=== PATIENT | female | born 1985 | race Caucasian/White ===

== ENCOUNTER 2023-05-21 13:27 | Inpatient (IN) | payer SELFPAY ==
[2023-05-21] MEDS ORDERED: SODIUM CHLORIDE 0.9% 1,000 ML IV ONE ×2 (13:42)
--- NOTE | 2023-05-21 14:14 | ED ---
General Adult HPI - General Source: patient, EMS, RN notes reviewed, old records reviewed Mode of arrival: EMS <Sterling Merino - Last Filed: 05/21/23 15:05> <Brennen Lopez - Last Filed: 05/21/23 20:06> - General Chief complaint: Alcohol Stated complaint: ETOH Time Seen by Provider: 05/21/23 13:40 - History of Present Illness Initial comments: This is a 38-year-old female who was sent into the emergency department because she was altered mentally. It is assumed that the patient is intoxicated and the patient does admit to drinking over a fifth of liquor today. Patient however is significantly confused and can't give any more specific history than that she is not accurately answering questions. Patient denies any seizure history. Patient denies any recent fever chills or cough per patient chest pain difficulty breathing shortest breath per patient denies any abdominal pain. (Sterling Merino) - Related Data Home Medications Medication Instructions Recorded Confirmed No Known Home Medications 05/21/23 05/21/23 Allergies Allergy/AdvReac Type Severity Reaction Status Date / Time No Known Allergies Allergy Verified 05/21/23 14:24 Review of Systems ROS Other: All systems not noted in ROS Statement are negative. <Sterling Merino - Last Filed: 05/21/23 15:05> ROS Other: All systems not noted in ROS Statement are negative. <Brennen Lopez - Last Filed: 05/21/23 20:06> ROS Statement: Those systems with pertinent positive or pertinent negative responses have been documented in the HPI. General Exam <Sterling Merino - Last Filed: 05/21/23 15:05> - General Exam Comments Initial Comments: GENERAL: Patient is well-developed and well-nourished. Patient is nontoxic and well- hydrated and is in no acute distress. Patient does appear intoxicated ENT: Neck is soft and supple. No significant lymphadenopathy is noted. Oropharynx is clear. Moist mucous membranes. Neck has full range of motion without eliciting any pain. EYES: The sclera were anicteric and conjunctiva were pink and moist. Extraocular movements were intact and pupils were equal round and reactive to light. Eyelids were unremarkable. PULMONARY: Unlabored respirations. Good breath sounds bilaterally. No audible rales rhonchi or wheezing was noted. CARDIOVASCULAR: There is a regular rate and rhythm without any murmurs gallops or rubs. ABDOMEN: Soft and nontender with normal bowel sounds. SKIN: Skin is clear with no lesions or rashes and otherwise unremarkable. NEUROLOGIC: Patient is alert and oriented 1. Cranial nerves II through XII are grossly intact. Motor and sensory are also intact. Normal speech, volume and content. Symmetrical smile. MUSCULOSKELETAL: Normal extremities with adequate strength and full range of motion. LYMPHATICS: No significant lymphadenopathy is noted PSYCHIATRIC: Unable to assess at this time (Sterling Merino) Course Vital Signs 05/21/23 13:38 Temperature 98.4 F Pulse Rate 98 Respiratory 18 Rate Blood Pressure 115/86 O2 Sat by Pulse 92 L Oximetry Medical Decision Making <Sterling Merino - Last Filed: 05/21/23 15:05> - Lab Data Result diagrams: 05/21/23 13:42 05/21/23 13:42 <Brennen Lopez - Last Filed: 05/21/23 20:06> - Medical Decision Making EKG was interpreted by myself shows sinus rhythm at 87 bpm TX interval 150 QRS is 86 QT interval 344 QTC is 389. Patient's EKG shows no ST segment elevation or depression. Was pt. sent in by a medical professional or institution ([facility], [employer], urgent care, hospital, or halfway...) When possible be specific @ -[No] Did you speak to anyone other than the patient for history (EMS, parent, family, police, friend...)? What history was obtained from this source @ -EMS gave all the history Did you review nursing and triage notes (agree or disagree)? Why? @ -[I reviewed and agree with nursing and triage notes] Were old charts reviewed (outside hosp., previous admission, EMS record, old EKG, old radiological studies, urgent care reports/EKG's, halfway records)? Report findings @ -[No old charts were reviewed] Differential Diagnosis (chest pain, altered mental status, abdominal pain women, abdominal pain men, vaginal bleeding, weakness, fever, dyspnea, syncope, headache, dizziness, GI bleed, back pain, seizure, CVA, palpatations, mental health, musculoskeletal)? @ -Differential Altered Mental Status: Hypoglycemia, DKA, hypercapnia, ETOH, overdose, CO poisoning, trauma, myxedema coma, HTN encephalopathy, infection, encephalitis, psychosis, intercranial hemorrhage, hepatic encephalopathy, meningitis, CVA, this is not meant to be an all-inclusive list EKG interpreted by me (3pts min.). @ -[As above] X-rays interpreted by me (1pt min.). @ -[None done] CT interpreted by me (1pt min.). @ -[None done] U/S interpreted by me (1pt. min.). @ -[None done] What testing was considered but not performed or refused? (CT, X-rays, U/S, labs)? Why? @ -[None] What meds were considered but not given or refused? Why? @ -[None] Did you discuss the management of the patient with other professionals (professionals i.e. , PA, [employer], lab, RT, psych nurse, social media community manager, reclamation kettle tender, teacher, parking officer, complex case manager)? Give summary @ -[No] Was smoking cessation discussed for >3mins.? @ -[No] Was critical care preformed (if so, how long)? @ -[No] Were there social determinants of health that impacted care today? How? (Homelessness, low income, unemployed, alcoholism, drug addiction, transportation, low edu. Level, literacy, decrease access to med. care, fdc, rehab)? @ -[No] Was there de-escalation of care discussed even if they declined (Discuss DNR or withdrawal of care, Hospice)? DNR status @ -[No] What co-morbidities impacted this encounter? (DM, HTN, Smoking, COPD, CAD, Cancer, CVA, ARF, Chemo, Hep., AIDS, mental health diagnosis, sleep apnea, morbid obesity)? @ -[None] Was patient admitted / discharged? Hospital course, mention meds given and route, prescriptions, significant lab abnormalities, going to OR and other pertinent info. @ -Patient appear intoxicated however she was significantly altered so I felt obligated to order a CAT scan of the head. Patient awaits lab work and CT. Patient care taken over by Dr. Emmanuel for at 3 PM (Sterling Merino) The patient was signed out to me from Dr. Merino. The patient was signed out pending complete evaluation as the patient was refusing IV at that time. The patient was clearly intoxicated on my evaluation and refused medical care at this time however the patient was intoxicated and needed further evaluation. The patient needed to have medications including Haldol, Ativan and Benadryl and was able to rest comfortable B. An IV was obtained. The patient and was also present and did place a petition with the patient for continued hallucinations and psychosis that the patient has been x-rays over last several months associated with her significant drinking and alcoholism. [facility] however was a poor historian and cannot provide further details at this time. Undiagnosed new problem with uncertain prognosis? @ -No Drug Therapy requiring intensive monitoring for toxicity (Heparin, Nitro, Insulin, Cardizem)? @ -No Were any procedures done? @ -No Diagnosis/symptom? @ -Acute alcohol intoxication, psychosis Acute, or Chronic, or Acute on Chronic? @ -Acute on chronic Uncomplicated (without systemic symptoms) or Complicated (systemic symptoms)? @ -Complicated Side effects of treatment? @ -No Exacerbation, Progression, or Severe Exacerbation? @ -No Poses a threat to life or bodily function? How? (Chest pain, USA, SC, pneumonia, PE, COPD, DKA, ARF, appy, cholecystitis, CVA, Diverticulitis, Homicidal, Suicidal, threat to staff... and all critical care pts) @ -Yes, continued alcoholism can lead to permanent damage and possible . (Brennen Lopez) - Lab Data Lab Results 05/21/23 05/21/23 05/21/23 Range/Units 13:42 13:42 13:42 WBC 7.5 (3.8-10.6) k/uL RBC 3.87 (3.80-5.40) m/uL Hgb 13.1 (11.4-16.0) gm/dL Hct 38.6 (34.0-46.0) % MCV 99.7 (80.0-100.0) fL MCH 33.9 (25.0-35.0) pg MCHC 34.0 (31.0-37.0) g/dL RDW 13.1 (11.5-15.5) % Plt Count 267 (150-450) k/uL MPV 7.1 Neutrophils % 50 % Lymphocytes % 41 % Monocytes % 3 % Eosinophils % 2 % Basophils % 2 % Neutrophils # 3.8 (1.3-7.7) k/uL Lymphocytes # 3.0 (1.0-4.8) k/uL Monocytes # 0.2 (0-1.0) k/uL Eosinophils # 0.2 (0-0.7) k/uL Basophils # 0.1 (0-0.2) k/uL PT 9.7 (9.0-12.0) sec INR 0.9 (<1.2) APTT 22.8 (22.0-30.0) sec Sodium 143 (137-145) mmol/L Potassium 4.0 (3.5-5.1) mmol/L Chloride 108 H (98-107) mmol/L Carbon Dioxide 23 (22-30) mmol/L Anion Gap 12 mmol/L BUN 18 H (7-17) mg/dL Creatinine 0.82 (0.52-1.04) mg/dL Est GFR (CKD-EPI)AfAm >90 (>60 ml/min/1.73 sqM) Est GFR (CKD-EPI)NonAf >90 (>60 ml/min/1.73 sqM) Glucose 77 (74-99) mg/dL Calcium 8.2 L (8.4-10.2) mg/dL Magnesium 2.3 (1.6-2.3) mg/dL Total Bilirubin 0.3 (0.2-1.3) mg/dL AST 26 (14-36) U/L ALT 21 (4-34) U/L Alkaline Phosphatase 59 (38-126) U/L Ammonia (<30) umol/L Total Protein 7.0 (6.3-8.2) g/dL Albumin 4.0 (3.5-5.0) g/dL Serum Alcohol 315 H* mg/dL 05/21/23 Range/Units 13:42 WBC (3.8-10.6) k/uL RBC (3.80-5.40) m/uL Hgb (11.4-16.0) gm/dL Hct (34.0-46.0) % MCV (80.0-100.0) fL MCH (25.0-35.0) pg MCHC (31.0-37.0) g/dL RDW (11.5-15.5) % Plt Count (150-450) k/uL MPV Neutrophils % % Lymphocytes % % Monocytes % % Eosinophils % % Basophils % % Neutrophils # (1.3-7.7) k/uL Lymphocytes # (1.0-4.8) k/uL Monocytes # (0-1.0) k/uL Eosinophils # (0-0.7) k/uL Basophils # (0-0.2) k/uL PT (9.0-12.0) sec INR (<1.2) APTT (22.0-30.0) sec Sodium (137-145) mmol/L Potassium (3.5-5.1) mmol/L Chloride (98-107) mmol/L Carbon Dioxide (22-30) mmol/L Anion Gap mmol/L BUN (7-17) mg/dL Creatinine (0.52-1.04) mg/dL Est GFR (CKD-EPI)AfAm (>60 ml/min/1.73 sqM) Est GFR (CKD-EPI)NonAf (>60 ml/min/1.73 sqM) Glucose (74-99) mg/dL Calcium (8.4-10.2) mg/dL Magnesium (1.6-2.3) mg/dL Total Bilirubin (0.2-1.3) mg/dL AST (14-36) U/L ALT (4-34) U/L Alkaline Phosphatase (38-126) U/L Ammonia <9 (<30) umol/L Total Protein (6.3-8.2) g/dL Albumin (3.5-5.0) g/dL Serum Alcohol mg/dL Disposition <Sterling Merino - Last Filed: 05/21/23 15:05> Is patient prescribed a controlled substance at d/c from ED?: No Time of Disposition: 18:00 Decision to Admit Reason: Admit from EC Decision Date: 05/21/23 Decision Time: 18:00 <Brennen Lopez - Last Filed: 05/21/23 20:06> Clinical Impression: Alcoholic intoxication, Evaluation by psychiatric service required Disposition: ADMITTED IP TO THIS [facility] Condition: Stable Referrals: None,Stated [Primary Care Provider] - 1-2 days
[2023-05-21] MEDS ORDERED: LORazepam 2 MG/ML INJ IM STA (15:37)
[2023-05-21] MEDS ORDERED: diphenhydrAMINE 50 MG/ML 1 ML VIAL IM STA (15:37)
[2023-05-21] MEDS ORDERED: HALOPERIDOL LACTATE 5 MG/ML 1 ML VIAL IM STA (15:37)
--- NOTE | 2023-05-21 17:11 | XR ---
EXAMINATION TYPE: XR chest 2V DATE OF EXAM: 05/21/2023 5:06 PM COMPARISON: None TECHNIQUE: XR chest 2V Frontal and lateral views of the chest. CLINICAL INDICATION:Female, 38 years old with history of altered mental status; FINDINGS: Lungs/Pleura: There is no evidence of pleural effusion, focal consolidation, or pneumothorax. Pulmonary vascularity: Unremarkable. Heart/mediastinum: Cardiomediastinal silhouette is unremarkable. Musculoskeletal: No acute osseous pathology. IMPRESSION: No acute cardiopulmonary disease/process.
[2023-05-21 17:26] LABS: Basophils # (A) 0.1 k/uL (0-0.2); Basophils % (A) 2 %; Eosinophils # (A) 0.2 k/uL (0-0.7); Eosinophils % (A) 2 %; HCT 38.6 % (34.0-46.0); HGB 13.1 gm/dL (11.4-16.0); Lymphocytes % (A) 41 %; MCH 33.9 pg (25.0-35.0); MCV 99.7 fL (80.0-100.0); Mean Platelet Volume 7.1; Monocytes # (A) 0.2 k/uL (0-1.0); Monocytes % (A) 3 %; Neutrophils # (A) 3.8 k/uL (1.3-7.7); Neutrophils % (A) 50 %; Platelet Count 267 k/uL (150-450); RBC 3.87 m/uL (3.80-5.40); RDW 13.1 % (11.5-15.5); WBC 7.5 k/uL (3.8-10.6)
[2023-05-21 17:39] LABS: INR 0.9 (<1.2); Partial Thromboplastin Time 22.8 sec (22.0-30.0); Prothrombin Time 9.7 sec (9.0-12.0)
[2023-05-21 17:41] LABS: ALT 21 U/L (4-34); AST 26 U/L (14-36); African American GFR (CKD) >90 (>60 ml/min/1.73 sqM); Alkaline Phosphatase 59 U/L (38-126); Anion Gap 12 mmol/L; Blood Urea Nitrogen 18 mg/dL (7-17); Calcium 8.2 mg/dL (8.4-10.2); Carbon Dioxide 23 mmol/L (22-30); Chloride 108 mmol/L (98-107); Glucose 77 mg/dL (74-99); Magnesium 2.3 mg/dL (1.6-2.3); Non-African American GFR(CKD) >90 (>60 ml/min/1.73 sqM); Sodium 143 mmol/L (137-145); Total Bilirubin 0.3 mg/dL (0.2-1.3)
[2023-05-21 17:50] LABS: Alcohol 315 mg/dL
--- NOTE | 2023-05-21 19:52 | CT ---
EXAMINATION TYPE: CT brain wo con CT DLP: 1161.4 mGycm, Automated exposure control for dose reduction was used. DATE OF EXAM: 05/21/2023 7:30 PM COMPARISON: None. CLINICAL INDICATION:Female, 38 years old with history of Altered mental status, ams, etoh TECHNIQUE: Brain: Axial CT images of the brain were obtained with coronal and sagittal reformats created and rev iewed. Contrast used: None. Oral contrast used: None. FINDINGS: Brain: Extra-axial spaces: No abnormal extra-axial fluid collections. Ventricular system: Within normal limits Cerebral parenchyma: No acute intraparenchymal hemorrhage or mass effect. The arias-white junction is well differentiated. Cerebellum: Unremarkable. Mass effect: No evidence of midline shift. Intracranial vasculature: unremarkable Soft tissues: Normal. Calvarium/osseous structures: No depressed skull fracture. Paranasal sinuses and mastoid air cells: Mild scattered paranasal sinus disease. Visualized orbits: Orbital contents are intact. IMPRESSION: No acute intracranial process.
[2023-05-21] MEDS ORDERED: NALOXONE 0.4 MG/ML 1 ML VIAL IV PRN (20:07)
[2023-05-21 22:20] LABS: Glucose,Whole Blood 85 mg/dL (70-110)
[2023-05-22] MEDS ORDERED: LORazepam 2 MG/ML INJ IV PRN ×4 (00:33)
[2023-05-22] MEDS ORDERED: LORazepam 0.5 MG TAB PO PRN (00:33)
[2023-05-22] MEDS ORDERED: LORazepam 1 MG TAB PO PRN (00:33)
--- NOTE | 2023-05-22 01:21 | P.HPIM ---
History of Present Illness H&P Date: 05/21/23 Chief Complaint: alcohol withdrawal 38year old female with history of alcohol withdrawal seizures and DTs patient denies any medical concerns , when asked, she says that she was at a hotel, her card did not run, and they called the police on her. she denies any medical concerns , and admits to heavy drinking for the past couple days. while ED documentation reported that she was found unresponsive, EMS brought her in for evaluation, and workup in the ED revealed acute alcohol intoxication. she was violent in the ED, so she was petitioned for evaluation. 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 All other systems were reviewed and are negative on exam Constitutional: No acute distress, conversant, pleasant Eyes: Anicteric sclerae, moist conjunctiva, Pupils equal round reactive to light ENMT: NC/AT Oropharynx clear, no erythema, or exudates Neck: Supple, no masses, or JVD No carotid bruits No thyromegaly Lungs: Clear to auscultation Clear to percussion Normal respiratory effort, no accessory muscle use Cardiovascular: Heart regular in rate and rhythm, No murmurs, gallops, or rubs No peripheral edema Abdominal: Soft Nontender, no guarding, rebound or rigidity Abdomen moving with respiration Normoactive bowel sounds No hepatomegaly, No splenomegaly No palpable mass No abdominal wall hernia noted Skin: Normal temperature, tone, texture, turgor No induration No subcutaneous nodules No rash, lesions No ulcers Extremities: No digital cyanosis No clubbing Pedal pulses intact and symmetrical Radial pulses intact and symmetrical No calf tenderness Psychiatric: Alert and oriented to person, place and time Appropriate affect fair judgement Neuro Muscles Strength 5/5 in all 4 extremities Sensation to light touch grossly present throughout Cranial nerves II-XII grossly intact Lymphatics: no palpable cervical or supraclavicular lymph nodes Past Medical History Additional Past Medical History / Comment(s): patient reports only drinking normally 1-2 drinks a week. Aunt reports patient has been heavy drinking for last 2 years and reports having a couple seizures after quitting drinking in the last month but did not go to hospital. History of Any Multi-Drug Resistant Organisms: None Reported Past Surgical History: No Surgical Hx Reported Past Anesthesia/Blood Transfusion Reactions: No Reported Reaction Past Psychological History: No Psychological Hx Reported Additional Psychological History / Comment(s): Patient denies any psych history, Patients Aunt Scarlet reported that she was told she had a history but does not know what. Also reported heavy drinking for last 2 years per Aunt although patient denies. Aunt reports "2 years ago patient was successfully running [id number] in [place] but went down hill with drinking and lost her job/in care home x 2 in [place] and now homeless." Per Scarlet "Candy will lie and manipulate to get out of the hospital and avoid getting help." Smoking Status: Current every day smoker Past Alcohol Use History: Heavy Additional Past Alcohol Use History / Comment(s): 1-2 drinks a week or even a month per patient. Reports today isolated incident. Per Scarlet (aunt) patient drinks heavy for last 2 years. Past Drug Use History: None Reported - Past Family History Father History Unknown: Yes Medications and Allergies Home Medications Medication Instructions Recorded Confirmed Type No Known Home Medications 05/21/23 05/21/23 History Allergies Allergy/AdvReac Type Severity Reaction Status Date / Time No Known Allergies Allergy Verified 05/21/23 14:24 Physical Exam Vitals: Vital Signs Temp Pulse Pulse Resp BP BP Pulse Ox 05/21/23 21:50 98.4 F 108 H 17 103/67 98 05/21/23 21:47 77 16 106/73 98 05/21/23 20:00 94 16 92/61 97 05/21/23 13:38 98.4 F 98 18 115/86 92 L Intake and Output 05/21/23 05/21/23 05/22/23 14:59 22:59 06:59 Other: Weight 49.895 kg 49.895 kg Results CBC & Chem 7: 05/21/23 13:42 05/21/23 13:42 Labs: Abnormal Lab Results - Last 24 Hours (Table) 05/21/23 Range/Units 13:42 Chloride 108 H (98-107) mmol/L BUN 18 H (7-17) mg/dL Calcium 8.2 L (8.4-10.2) mg/dL Serum Alcohol 315 H* mg/dL Thrombosis Risk Factor Assmnt - Choose All That Apply Any of the Below Risk Factors Present?: No Other Risk Factors: No Other congenital or acquired thrombophilia - If yes, enter type in comment: No Thrombosis Risk Factor Assessment Level: Very Low Risk Assessment and Plan Assessment: 38 year old female with history of withdrawal seizures, coming in due to being found unresponsive (or due to violent behavior in the hotel) I discussed the case with ED doc , and I accepted the admission for alcohol withdrawal and psych evaluation acute alcohol intoxication , with potential alcohol withdrawal monitor vital signs IVF hydration with D5% 0.45 at 75 cc per hour thiamine daily benzo per [facility] bedside sitter for safety psych evaluation patient petitioned in the ED brain CT negative for any acute pathology patient denies any suicidal ideation blood work showed elevated blood alcohol level blood work otherwise unremarkable Hgb 13.1 , WBC 7.5 unremarkable BUN 18 Cr 0.82 unremarkable full code DVT PPX heparin sc tid
[2023-05-22] MEDS: DEXTROSE 5%-0.45% NACL 1,000 ML IV SCH ×2 (02:08→15:31)
[2023-05-22 05:44] LABS: Amphetamine Screen,Urine Not Detected (NotDetected); Barbiturate Screen,Urine Not Detected (NotDetected); Benzodiazepines Screen,Urine Detected (NotDetected); Cocaine Screen,Urine Not Detected (NotDetected); Methadone Screen, Urine Not Detected (NotDetected); Opiate Screen,Urine Not Detected (NotDetected); Oxycodone Screen, Urine Not Detected (NotDetected); Phencyclidine Screen,Urine Not Detected (NotDetected); Tricyclic Antidepressant,Urine Not Detected (NotDetected); Urn Cannabinoid Scrn Not Detected (NotDetected)
[2023-05-22] MEDS: HEPARIN SODIUM,PORCINE 5,000 UNIT/ML 1 ML VIAL SQ SCH ×2 (08:34→15:31)
[2023-05-22 13:18] VITALS: BMI 18.8
--- NOTE | 2023-05-22 13:30 | P.PN ---
Subjective Progress Note Date: 05/22/23 Hospital Course: 38-year-old female with history of alcohol dependence, and history of alcohol withdrawal seizures and DTs presented with alcohol intoxication. Patient was petitioned by her aunt. Psychiatry consulted. Subjective: Patient seen and examined at bedside. No acute events overnight. Denies any complaints. Pertinent positives and negatives as discussed above, a complete review of systems was performed and all other systems are negative. Vitals Signs Reviewed. General: nontoxic, no distress, appears at stated age Derm: warm, dry Head: atraumatic, normocephalic, symmetric Eyes: EOMI, no lid lag, anicteric sclera Mouth: no lip lesion, mucus membranes moist Cardiovascular: S1S2 reg, no murmur Lungs: CTA bilateral, no rhonchi, no rales , no accessory muscle use Abdominal: soft, nontender to palpation, no guarding, no appreciable organomegaly Ext: no gross muscle atrophy, no edema, no contractures Neuro: CN II-XI grossly intact, no focal neuro deficits Psych: Alert, oriented, appropriate affect Data Reviewed Today: Pertinent Labs: Most recent glucose was 85 Imaging: No new imaging Assessment and Plan: Acute Alcohol intoxication History of alcohol dependence with withdrawals and DTs Anxiety Homelessness -Continue IV fluids, oral thiamine -Monitor for withdrawal -Patient was petitioned, podiatry evaluation pending -general scrap worker following -Patient is alert and oriented, bedside sitter discontinued, no suicidal ideations DVT ppx: Subcu heparin Code status: Full code Anticipated discharge place: Pending clinical course Anticipated discharge time: Pending clinical course Objective - Vital Signs Vital signs: Vital Signs Temp 99.0 F 05/22/23 07:07 Pulse 95 05/22/23 07:07 Resp 15 05/22/23 07:07 BP 119/79 05/22/23 07:07 Pulse Ox 99 05/22/23 08:47 FiO2 Intake & Output 05/21/23 05/22/23 05/22/23 18:59 06:59 18:59 Intake Total 375 Output Total 200 Balance 175 Weight 49.895 kg 49.895 kg 49.895 kg Intake: Intake, IV Titration 375 Amount Dextrose 5%-0.45% NaCl 1, 375 000 ml @ 75 mls/hr IV . [id number] Rx#:[id number] Output: Urine 200 Other: # Voids 3 - Labs CBC & Chem 7: 05/21/23 13:42 05/21/23 13:42 Labs: Abnormal Lab Results - Last 24 Hours (Table) 05/21/23 05/21/23 Range/Units 04:46 13:42 Chloride 108 H (98-107) mmol/L BUN 18 H (7-17) mg/dL Calcium 8.2 L (8.4-10.2) mg/dL U Benzodiazepines Scrn Detected H (NotDetected) Serum Alcohol 315 H* mg/dL
[2023-05-22 14:06] VITALS: BP 126/76; PULSE 83; RESP 14; TEMP 98.7
--- NOTE | 2023-05-22 14:45 | P.CN ---
Psychiatric Consult - . Consult date: 05/22/23 Consult:: 05/22/23 14:44 IDENTIFYING DATA: This patient is a single, unemployed, 38-year-old female with significant history of alcohol abuse who presents to our hospital on 05/21/2023, for acute alcohol intoxication. HISTORY OF PRESENT ILLNESS: The patient presented to the hospital on 05/21/2023, brought to the emergency department by EMS for acute alcohol intoxication. The patient was noted to be very agitated in the emergency department. She was grossly altered and acutely intoxicated. Serum alcohol was 315. The patient was petitioned by her aunt for mental health treatment at the patient has had a history of auditory and visual hallucinations. The patient did have a CT of her head performed which revealed no acute processes. EKG revealed sinus rhythm with short WI interval with a QTC of 389 ms. The patient was subsequently admitted to the medical floor for evaluation and management of acute alcohol withdrawal and concerns for delirium tremens. Present in the room with the patient has her on Scarlet Pichardo. Patient is agreeable to having her present in the room and to provide supplemental history. The patient recently relocated to [place] after being picked up by her aunt. The patient has been drinking excessively over the past few weeks, approximating at least a fifth of liquor per day. The patient has been unemployed and has been struggling with maintaining employment. 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 She has been struggling with her employment, her relationship with her ex-fianc she has been with for the past 10 years and recently broke up over the past year, and with her addiction. Furthermore, the patient has a history of abusing her Vyvanse. As per family members, she has been using 120 or more Vyvanse in a day. Of concern for the patient and her family, is her history of psychotic symptoms. The patient reports that she first had a psychotic episode 6 months ago. She reports hearing and seeing people that were not present. She was also opening the doors for people who were not there. Her roommate at the time express concern for this. However, when police came to evaluate her, the patient stated "I was just joking." More recently, she contacted her and expressed the same concerns that she has been followed and that there are shadow people. This episode occurred a few days prior to this admission. The patient reports that this occurred even when she was sober and outside the window of acute alcohol withdrawal. In regards to her mood, the patient does report elevated anxiety and depression. She does report difficulty with sleep. The patient's family reports that she has not been sleeping most nights. She would even use up to 7 Tylenol PMs at one time in order to address this problem. She does report low energy, low mood, elevated anxiety, however is denying any suicidal or homicidal ideation, intention, and/or plan. The patient and her family agreed that rehab would likely be the best option for her substance abuse. However they do express concern for her underlying mental illness, in particular the depression, anxiety, and psychosis. She is agreeable for inpatient psychiatric admission. PAST PSYCHIATRIC HISTORY: Patient has a history of depression, anxiety, alcohol use disorder, and ADHD. The patient has been previously prescribed gabapentin a nd Vyvanse. Patient denies any previous psychiatric hospitalizations. Patient denies any current psychiatric outpatient follow-up. Patient denies any history of suicide attempts in the past. PAST MEDICAL HISTORY: Additional Past Medical History / Comment(s): patient reports only drinking normally 1-2 drinks a week. Aunt reports patient has been heavy drinking for last 2 years and reports having a couple seizures after quitting drinking in the last month but did not go to hospital. History of Any Multi-Drug Resistant Organisms: None Reported Past Surgical History: No Surgical Hx Reported Past Anesthesia/Blood Transfusion Reactions: No Reported Reaction Past Psychological History: No Psychological Hx Reported Additional Psychological History / Comment(s): Patient denies any psych history, Patients Aunt Scarlet reported that she was told she had a history but does not know what. Also reported heavy drinking for last 2 years per Aunt although patient denies. 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 Reports today isolated incident. Per Scarlet (aunt) patient drinks heavy for last 2 years. Past Drug Use History: None Reported ALLERGIES: NO KNOWN DRUG ALLERGIES CHEMICAL DEPENDENCY HISTORY: The patient has been drinking at least 1-2 fifths of liquor per week. Apparently, the patient has been drinking heavily for the past 2 years. No reported illicit drug use however the patient is noted to abuse her Vyvanse. She also smokes tobacco daily. FAMILY PSYCHIATRIC/SUBSTANCE USE HISTORY: The patient's parents were noted to be bipolar. SOCIAL HISTORY: Patient was born and raised in [place], [place]. She has been living in [place] for approximately 10 years. 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 Currently, the patient is homeless. She has a history of incarceration. MENTAL STATUS EXAM: General Appearance: Patient appears to be stated age is alert, pleasant, and cooperative. Patient appears to have disheveled hygiene and grooming wearing hospital gown with fair eye contact. Behavior: Patient is calmly lying in bed without any agitated behavior. Speech: Patient's speech is fluent and nonpressured. Mood/Affect: Patient reports their mood is "not good lately", affect is constricted Suicidality/Homicidality: Patient reports no suicidal or homicidal ideation. Perceptions: Patient does report recent visual and auditory hallucinations however is denying any currently. She describes these as ego dystonic. Though content/process: There is no evidence of any delusional thought content and thought process is linear and goal-directed. Memory and concentration: AOX3, grossly intact for the purposes of this session. Can spell "WORLD" backwards Judgment and insight: Fair Vital Signs Temp 98.7 F 05/22/23 13:23 Pulse 83 05/22/23 13:23 Resp 14 05/22/23 13:23 BP 126/76 05/22/23 13:23 Pulse Ox 96 05/22/23 13:23 FiO2 Intake & Output 05/21/23 05/22/23 05/22/23 18:59 06:59 18:59 Intake Total 375 Output Total 200 Balance 175 Weight 49.895 kg 49.895 kg 49.895 kg Intake: Intake, IV Titration 375 Amount Dextrose 5%-0.45% NaCl 1, 375 000 ml @ 75 mls/hr IV . [id number] Rx#:[id number] Output: Urine 200 Other: # Voids 3 Laboratory Results WBC 7.5 k/uL (3.8-10.6) 05/21/23 13:42 RBC 3.87 m/uL (3.80-5.40) 05/21/23 13:42 Hgb 13.1 gm/dL (11.4-16.0) 05/21/23 13:42 Hct 38.6 % (34.0-46.0) 05/21/23 13:42 MCV 99.7 fL (80.0-100.0) 05/21/23 13:42 MCH 33.9 pg (25.0-35.0) 05/21/23 13:42 MCHC 34.0 g/dL (31.0-37.0) 05/21/23 13:42 RDW 13.1 % (11.5-15.5) 05/21/23 13:42 Plt Count 267 k/uL (150-450) 05/21/23 13:42 MPV 7.1 05/21/23 13:42 Neutrophils % 50 % 05/21/23 13:42 Lymphocytes % 41 % 05/21/23 13:42 Monocytes % 3 % 05/21/23 13:42 Eosinophils % 2 % 05/21/23 13:42 Basophils % 2 % 05/21/23 13:42 Neutrophils # 3.8 k/uL (1.3-7.7) 05/21/23 13:42 Lymphocytes # 3.0 k/uL (1.0-4.8) 05/21/23 13:42 Monocytes # 0.2 k/uL (0-1.0) 05/21/23 13:42 Eosinophils # 0.2 k/uL (0-0.7) 05/21/23 13:42 Basophils # 0.1 k/uL (0-0.2) 05/21/23 13:42 PT 9.7 sec (9.0-12.0) 05/21/23 13:42 INR 0.9 (<1.2) 05/21/23 13:42 APTT 22.8 sec (22.0-30.0) 05/21/23 13:42 Sodium 143 mmol/L (137-145) 05/21/23 13:42 Potassium 4.0 mmol/L (3.5-5.1) 05/21/23 13:42 Chloride 108 mmol/L (98-107) H 05/21/23 13:42 Carbon Dioxide 23 mmol/L (22-30) 05/21/23 13:42 Anion Gap 12 mmol/L 05/21/23 13:42 BUN 18 mg/dL (7-17) H 05/21/23 13:42 Creatinine 0.82 mg/dL (0.52-1.04) 05/21/23 13:42 Est GFR (CKD-EPI)AfAm >90 (>60 ml/min/1.73 sqM) 05/21/23 13:42 Est GFR (CKD-EPI)NonAf >90 (>60 ml/min/1.73 sqM) 05/21/23 13:42 Glucose 77 mg/dL (74-99) 05/21/23 13:42 POC Glucose (mg/dL) 85 mg/dL (70-110) 05/21/23 22:18 POC Glu [employer] HUY Tisha Butterfield 05/21/23 22:18 Calcium 8.2 mg/dL (8.4-10.2) L 05/21/23 13:42 Magnesium 2.3 mg/dL (1.6-2.3) 05/21/23 13:42 Total Bilirubin 0.3 mg/dL (0.2-1.3) 05/21/23 13:42 AST 26 U/L (14-36) 05/21/23 13:42 ALT 21 U/L (4-34) 05/21/23 13:42 Alkaline Phosphatase 59 U/L (38-126) 05/21/23 13:42 Ammonia <9 umol/L (<30) 05/21/23 13:42 Total Protein 7.0 g/dL (6.3-8.2) 05/21/23 13:42 Albumin 4.0 g/dL (3.5-5.0) 05/21/23 13:42 Urine Opiates Screen Not Detected (NotDetected) 05/21/23 04:46 Ur Oxycodone Screen Not Detected (NotDetected) 05/21/23 04:46 Urine Methadone Screen Not Detected (NotDetected) 05/21/23 04:46 Ur Propoxyphene Screen Not Detected (NotDetected) 05/21/23 04:46 Ur Barbiturates Screen Not Detected (NotDetected) 05/21/23 04:46 U Tricyclic Antidepress Not Detected (NotDetected) 05/21/23 04:46 Ur Phencyclidine Scrn Not Detected (NotDetected) 05/21/23 04:46 Ur Amphetamines Screen Not Detected (NotDetected) 05/21/23 04:46 U Methamphetamines Scrn Not Detected (NotDetected) 05/21/23 04:46 U Benzodiazepines Scrn Detected (NotDetected) H 05/21/23 04:46 Urine Cocaine Screen Not Detected (NotDetected) 05/21/23 04:46 U Marijuana (THC) Screen Not Detected (NotDetected) 05/21/23 04:46 Serum Alcohol 315 mg/dL H* 05/21/23 13:42 IMPRESSIONS: Alcohol use disorder Substance-induced psychosis - alcohol hallucinosis versus stimulant abuse Rule out bipolar disorder with psychotic features PLAN: -Continue her treatment for alcohol withdrawal -At this time patient DOES meet criteria for inpatient psychiatric admission. The patient is willing to sign herself voluntarily on the psychiatric unit in order to address acute psychotic symptoms, depressive symptoms, and decrease in functioning. -Delirium precautions recommended with patient including - avoiding use of narcotics and RUG CLIPPER sedatives, limit anticholinergic medications when possible, frequent re-orientation, minimize use of restraints, open window shades during the day and close them at night -Would recommend the following medication changes/additions: We will start Seroquel 100 mg by mouth at bedtime for insomnia, psychosis, and mood stabilization Start melatonin 5 mg by mouth daily at bedtime for insomnia Start naltrexone 50 mg by mouth daily for alcohol cessation -At this time, the patient does not require one-to-one sitter. -The patient has been petitioned by her aunt. Patient appears to be willing to sign herself voluntarily on to the psychiatric unit. -Will continue to follow along -When medically stable, patient is eligible for transfer to a psych bed when available. 05/22/23 14:45 05/22/23 14:45
--- NOTE | 2023-05-22 14:52 | P.DS ---
Providers Date of admission: 05/21/23 20:07 Expected date of discharge: 05/22/23 Attending physician: Shade Cowart MD Consults: 05/21/23 20:07 Consult Physician Routine Consulting Provider: Osito Frazier Consult Reason/Comments: Petitioned, hallucinations Do you want consulting provider notified?: Already Contacted Primary care physician: Stated None Hospital Course: Discharge Diagnosis: Acute Alcohol intoxication History of alcohol dependence with withdrawals and DTs Anxiety Homelessness Hospital Course: 38-year-old female with history of alcohol dependence, and history of alcohol withdrawal seizures and DTs presented with alcohol intoxication. Patient was petitioned by her aunt. Psychiatry consulted. Patient is now being discharged to Psych for substance-induced psychosis, rule out bipolar disorder. Patient seen and examined at bedside. Vital signs reviewed and stable. General: nontoxic, no distress, appears at stated age Derm: warm, dry Head: atraumatic, normocephalic, symmetric Eyes: EOMI, no lid lag, anicteric sclera Mouth: no lip lesion, mucus membranes moist Cardiovascular: S1S2 reg, no murmur Lungs: CTA bilateral, no rhonchi, no rales , no accessory muscle use Abdominal: soft, nontender to palpation, no guarding, no appreciable organomegaly Ext: no gross muscle atrophy, no edema, no contractures Neuro: CN II-XI grossly intact, no focal neuro deficits Psych: Alert, oriented, appropriate affect A total of 36 minutes of time were spent preparing this complex discharge summary. Patient was discharged on 05/22/23 at 1447. Patient Condition at Discharge: Stable Plan - Discharge Summary Discharge Rx Participant: No New Discharge Prescriptions: New Melatonin 5 mg PO HS tab QUEtiapine [SEROquel] 100 mg PO HS tab Thiamine [Vitamin B-1] 100 mg PO DAILY tab Discharge Medication List Melatonin 5 mg PO HS tab 05/22/23 [Rx] QUEtiapine [SEROquel] 100 mg PO HS tab 05/22/23 [Rx] Thiamine [Vitamin B-1] 100 mg PO DAILY tab 05/22/23 [Rx] Follow up Appointment(s)/Referral(s): None,Stated [Primary Care Provider] - 1-2 days Patient Instructions/Handouts: Alcohol Intoxication (DC) Discharge/Stand Alone Forms: [facility], [facility], Outpatient Counseling, Inp Substance Abuse Facilities Discharge Disposition: TRANSFER TO PSYCH HOSP/UNIT
[2023-05-22] MEDS ORDERED: MELATONIN 5 MG TABLET PO SCH (21:00)
[2023-05-22] MEDS ORDERED: QUEtiapine 100 MG TAB PO SCH (21:00)
[2023-05-23] MEDS ORDERED: THIAMINE 100 MG TAB PO SCH (09:00)
[2023-05-23] MEDS ORDERED: NALTREXONE HCL 50 MG TAB PO SCH (09:00)
== END 2023-05-22 18:04 | DRG 897 ==
LOC: EC 13:27 → 4SSUR 20:07
PROVIDERS: ADMIT Internal Medicine; ATTEND Internal Medicine
PROC: HZ2ZZZZ Detoxification Services for Substance Abuse Treatment (ICD-10-PCS; principal; 2023-05-21)
DX: F10.251 Alcohol dependence with alcohol-induced psychotic disorder with hallucinations (principal); F10.239 Alcohol dependence with withdrawal, unspecified; F17.210 Nicotine dependence, cigarettes, uncomplicated; Y90.8 Blood alcohol level of 240 mg/100 ml or more; Z59.00 Homelessness unspecified; Z56.0 Unemployment, unspecified
CPT/HCPCS: 36415; 70450; 71046; 80053; 80306; 80320; 82140; 83735; 85025; 85610; 85730; 93005; 94760; 96360; 96372; 99285

== ENCOUNTER 2023-05-22 16:34 | Inpatient (IN) | payer OTHER ==
[2023-05-22] MEDS ORDERED: OLANZapine 5 MG TAB PO PRN (16:52)
[2023-05-22] MEDS ORDERED: hydrOXYzine HCL 50 MG/ML 1 ML VIAL IM PRN (16:52)
[2023-05-22] MEDS ORDERED: OLANZapine 10 MG VIAL IM PRN (16:52)
[2023-05-22] MEDS ORDERED: ACETAMINOPHEN TAB 325 MG TAB PO PRN (16:52)
[2023-05-22] MEDS ORDERED: MAGNESIUM HYDROXIDE 2,400 MG/30 ML CUP PO PRN (16:52)
[2023-05-22] MEDS ORDERED: hydrOXYzine pamoate 25 MG CAP PO PRN (16:59)
[2023-05-22] MEDS ORDERED: QUEtiapine 100 MG TAB PO SCH (21:00)
[2023-05-22] MEDS: chlordiazePOXIDE 25 MG CAP PO SCH ×2 (21:46→22:13)
[2023-05-22] MEDS: MELATONIN 5 MG TABLET PO SCH (21:46)
[2023-05-23] MEDS: THIAMINE 100 MG TAB PO SCH (08:17)
[2023-05-23] MEDS: chlordiazePOXIDE 25 MG CAP PO SCH ×3 (08:17→21:22)
[2023-05-23] MEDS: NICOTINE 14MG/24HR PATCH TRANSDERM SCH (08:17)
[2023-05-23] MEDS: IBUPROFEN 600 MG TAB PO PRN ×2 (09:37→16:17)
--- NOTE | 2023-05-23 13:10 | P.HP ---
Psychiatric H&P - . H&P Date: 05/23/23 History & Physical: Allergies Allergy/AdvReac Type Severity Reaction Status Date / Time No Known Allergies Allergy Verified 05/21/23 14:24 Vital Signs Temp 98 F 05/23/23 06:40 Pulse 85 05/23/23 06:40 Resp 20 05/23/23 06:40 BP 119/79 05/23/23 06:40 Pulse Ox 98 05/23/23 06:40 FiO2 Intake & Output 05/22/23 05/23/23 05/23/23 18:59 06:59 18:59 Weight 54.885 kg 05/23/23 13:10 IDENTIFYING DATA: This patient is a single, unemployed, 38-year-old female with significant history of alcohol abuse who presents to our hospital on 05/21/2023, for acute alcohol intoxication. The patient was managed on the medical floor for acute withdrawal and was subsequently admitted onto our psychiatric unit for evaluation of psychosis and mood. HPI: Patient presented to the hospital on 05/21/2023, brought into the emergency department by EMS for acute alcohol intoxication. Furthermore, the patient was noted to be very agitated in the emergency department. She was petitioned by her aunt for mental health treatment. The patient has been struggling with mental health issues for the past year. She has been experiencing elevated anxiety and depression after the relationship with her fianc of 10 years ended. She reports that even during their relationship together, he suffered from a traumatic brain injury and that the relationship has not recovered. She reports that she has been coping with excessive alcohol use. She does endorse significant symptoms of depression and anxiety including difficulty with sleep, low energy, low mood, and would often self medicate with alcohol to cope. In order to address her insomnia, the patient would also ingest up to 7 Tylenol PMs at once. The patient however vehemently denies any past or present suicidal or homicidal ideation, intention, and/or plan. Aside from the patient's mood, there is concern for psychosis. The patient reports that she has had intermittent episodes of psychosis over the past year. She describes very vivid auditory hallucinations that started a year ago and very vivid visual hallucinations that has happened sporadically since then. The patient maintains that this would occur even when she is "not depressed and not drinking alcohol for weeks." She reports that she is often hearing the voice of her father telling her how much she is a failure. 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 She states that these hallucinations occur primarily when she is very stressed out. She reports that when she was staying with a friend in [place], she experienced torso hallucinations. She reported that she saw her grandmother and aunts present when they were not there. She reports that they were also present in the car when she was driving. She did text her and as this was happening. She was also evaluated in a hospital in [place] and the provided her with IM medication and after sleeping, she woke up without any hallucinations and was discharged her from the emergency department. Currently, the patient is facing homelessness. However, she states that she was able to speak with her parents and would like to return to their home prior to going to rehab. The patient expresses strong desire to go to [facility] for inpatient substance abuse rehabilitation. She was educated on how there will ne aurora be an ideal situation to quit alcohol. Patient acknowledges understanding. She is agreeable to psychiatric admission and to be initiated on these medications are to address her psychosis and alcohol use. PAST PSYCHIATRIC HISTORY: Patient states that she was previously diagnosed with ADHD, depression, anxiety. The patient has been previously prescribed gabapentin, Vyvanse, and Adderall. She does admit to abusing her Vyvanse on occasion. Patient denies any previous psychiatric hospitalizations. Patient denies any psychiatric outpatient follow-up. Patient denies any history of suicide attempts in the past. PMH: Additional Past Medical History / Comment(s): patient reports only drinking normally 1-2 drinks a week. Aunt reports patient has been heavy drinking for last 2 years and reports having a couple seizures after quitting drinking in the last month but did not go to hospital. History of Any Multi-Drug Resistant Organisms: None Reported Past Surgical History: No Surgical Hx Reported Past Anesthesia/Blood Transfusion Reactions: No Reported Reaction Past Psychological History: No Psychological Hx Reported Additional Psychological History / Comment(s): Patient denies any psych history, Patients Aunt Scarlet reported that she was told she had a history but does not know what. Also reported heavy drinking for last 2 years per Aunt although patient denies. 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 Reports today isolated incident. Per Scarlet (aunt) patient drinks heavy for last 2 years. Past Drug Use History: None Reported ALLERGIES: NO KNOWN DRUG ALLERGIES CHEMICAL DEPENDENCY HISTORY: The patient has been drinking at least 1-2 fifths of liquor per week. Apparently, the patient has been drinking heavily for the past 2 years. No reported illicit drug use however the patient is noted to abuse her Vyvanse. She also smokes tobacco daily. FAMILY PSYCHIATRIC/SUBSTANCE USE HISTORY: The patient's parents were noted to be bipolar. SOCIAL HISTORY: Patient was born and raised in [place], [place]. She has been living in [place] for approximately 10 years. 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 Currently, the patient is homeless. The patient apparently is welcome to return home to her parents who reside outside [place]. MENTAL STATUS EXAM: General Appearance: Patient appears to be stated age is alert, directable, and attempts to cooperate. Patient appears to have fair hygiene and grooming. Behavior: Patient is seated without any agitated behavior. Slightly elevated psychomotor activity. Speech: Patient's speech is fluent and nonpressured. Hyperverbal and slightly rapid but interruptible. Mood/Affect: Patient reports their mood is very nervous, affect is congruent and anxious Suicidality/Homicidality: Patient is vehemently denying any suicidal or homicidal ideation, intention, and/or plan. Perceptions: Patient denies any visual hallucinations and denies any auditory hallucinations Though content/process: There is no evidence of any delusional thought content and thought process is linear and goal-directed. Memory and concentration: AOX3, grossly intact for the purposes of this session. Can spell "WORLD" backwards Judgment and insight: Fair STRENGTHS/WEAKNESSES: Strength is that the patient is highly motivated and high functioning prior to the last year. She also appears to have good social support from her family although no permanent housing. Weaknesses the patient's substance abuse. INTELLECT: average IMPRESSIONS: Alcohol use disorder Substance-induced psychosis - alcohol hallucinosis versus stimulant abuse Rule out bipolar disorder with psychotic features PLAN: -Patient is admitted under voluntary status to MHU for stabilization of psychiatric symptoms and safety. Patient signed adult voluntary form and medication consent and is placed in patient's chart. -Medications : Increase Seroquel to 150 mg by mouth at bedtime for insomnia, psychosis, and mood stabilization Continue naltrexone 50 mg by mouth daily for alcohol cessation Continue melatonin 5 mg daily at bedtime for insomnia Librium 25 mg by mouth 3 times a day for alcohol withdrawal - will taper tomorrow -Zyprexa and Vistaril PRN for agitation/aggression -[facility] protocol -Thiamin and a multivitamin -Patient was counselled on substance abuse and desired to cut back on use. Patient is interested in going to inpatient substance abuse rehabilitation. -Patient was informed of the risks, benefits and side effects of the medication and patient verbally consented to taking the medications. Patient signed med consent form and was placed in chart. -Internal Medicine consult to perform medical evaluation and physical. -SW on board for discharge planning. Encourage patient to participate in groups to work on coping skills. 05/23/23 13:10
[2023-05-23] MEDS: QUEtiapine 100 MG TAB PO SCH (21:22)
[2023-05-23] MEDS: MELATONIN 5 MG TABLET PO SCH (21:22)
[2023-05-24] MEDS: THIAMINE 100 MG TAB PO SCH (08:36)
[2023-05-24] MEDS: NICOTINE 14MG/24HR PATCH TRANSDERM SCH (08:36)
[2023-05-24] MEDS: IBUPROFEN 600 MG TAB PO PRN ×2 (08:37→13:36)
[2023-05-24] MEDS: chlordiazePOXIDE 25 MG CAP PO SCH ×2 (08:38→20:46)
--- NOTE | 2023-05-24 11:38 | P.HPMEDMHU ---
History of Present Illness H&P Date: 05/24/23 Patient is a 38-year-old female with alcohol use disorder, substance abuse disorder, nicotine dependence, borderline personality disorder currently in behavioral health unit. [facility] has been consulted for medical management. Denies any chest pain, shortness of breath, abdominal pain, nausea, vomiting, diarrhea, constipation, or urinary complaints. Pertinent positives and negatives as discussed in HPI, a complete review of systems was performed and all other systems are negative. Patient seen and examined at bedside. Vital signs reviewed General: nontoxic, no distress, appears at stated age Derm: warm, dry Head: atraumatic, normocephalic, symmetric Eyes: EOMI, no lid lag, anicteric sclera, pupils equal round reactive to light ENT: Nose and ears atraumatic Neck: No thyromegaly, supple Mouth: no lip lesion, mucus membranes moist Cardiovascular: S1S2 reg, no murmur, no edema Lungs: clear to auscultation bilateral, no rhonchi, no rales, no wheeze, no accessory muscle use Abdominal: soft, nontender to palpation, no guarding, no appreciable organomegaly Ext: no gross muscle atrophy, muscle strength muscle strength 5 out of 5 in all 4 extremities, no contractures Neuro: CN II-XII grossly intact Psych: Alert, oriented, appropriate affect Assessment/Plan: Alcohol use disorder Substance use disorder Nicotine dependence -Counseled regarding cessation of alcohol, substance, and nicotine -Rest of the management per psychiatry -Labs reviewed from 05/21 Thank you for allowing us to participate in the care of this pleasant patient. Do not hesitate to contact us with questions. Someone can be reached from the [facility] hospitalist group all hours of the day at [phone] or via [employer]. Past Medical History Additional Past Medical History / Comment(s): patient reports only drinking normally 1-2 drinks a week. Aunt reports patient has been heavy drinking for last 2 years and reports having a couple seizures after quitting drinking in the last month but did not go to hospital. History of Any Multi-Drug Resistant Organisms: None Reported Past Surgical History: No Surgical Hx Reported Past Anesthesia/Blood Transfusion Reactions: No Reported Reaction Past Psychological History: No Psychological Hx Reported Additional Psychological History / Comment(s): Patient denies any psych history, Patients Aunt Scarlet reported that she was told she had a history but does not know what. Also reported heavy drinking for last 2 years per Aunt although patient denies. 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 Reports today isolated incident. Per Scarlet (aunt) patient drinks heavy for last 2 years. Past Drug Use History: None Reported - Past Family History Father History Unknown: Yes Medications and Allergies Home Medications Medication Instructions Recorded Confirmed Type Melatonin 5 mg PO HS tab 05/22/23 05/22/23 Rx QUEtiapine [SEROquel] 100 mg PO HS tab 05/22/23 05/22/23 Rx Thiamine [Vitamin B-1] 100 mg PO DAILY tab 05/22/23 05/22/23 Rx Allergies Allergy/AdvReac Type Severity Reaction Status Date / Time No Known Allergies Allergy Verified 05/21/23 14:24 Physical Exam Vitals: Vital Signs Temp Pulse Resp BP Pulse Ox 05/24/23 06:00 98.3 F 90 16 104/77 98 Cranial Nerve Examination - Cranial Nerves Cranial Nerve II- Optic: Intact Cranial Nerve III- Oculomotor: Intact Cranial Nerve IV- Trochlear: Intact Cranial Nerve V- Trigeminal: Intact Cranial Nerve - Abducens: Intact Cranial Nerve VII- Facial: Intact Cranial Nerve VIII- Auditory: Intact Cranial Nerve IX- Glossopharyngeal: Intact Cranial Nerve X- Vagus: Intact Cranial Nerve XI- Accessory: Intact Cranial Nerve XII- Hypoglossal: Intact Thrombosis Risk Factor Assmnt - Choose All That Apply Any of the Below Risk Factors Present?: No Other Risk Factors: No Other congenital or acquired thrombophilia - If yes, enter type in comment: No Thrombosis Risk Factor Assessment Level: Very Low Risk
--- NOTE | 2023-05-24 11:41 | P.PN ---
Progress Note - Text Progress Note Date: 05/24/23 attempted to see patient, but sleeping.
[2023-05-24] MEDS: MAG HYDROX/AL HYDROX/SIMETH 30 ML CUP PO PRN (13:36)
[2023-05-24] MEDS: QUEtiapine 100 MG TAB PO SCH (20:41)
[2023-05-24] MEDS: MELATONIN 5 MG TABLET PO SCH (20:45)
[2023-05-25] MEDS: THIAMINE 100 MG TAB PO SCH (08:04)
[2023-05-25] MEDS: NICOTINE 14MG/24HR PATCH TRANSDERM SCH (08:04)
[2023-05-25] MEDS: IBUPROFEN 600 MG TAB PO PRN ×2 (08:06→15:57)
[2023-05-25] MEDS: chlordiazePOXIDE 25 MG CAP PO SCH ×2 (08:06→20:25)
--- NOTE | 2023-05-25 18:45 | P.PN ---
Progress Note - Text Progress Note Date: 05/25/23 Interval history: Patient was seen talking to a peer in the hallway and was directable and agreeable to speak with typewriter assembler. Her speech is rapid, but non-pressured. She appears anxious and focused on discharge on Saturday. She claims good mood, sleep and appetite. Vitals reviewed and HR is 106, will continue her on Librium 25 mg bid for now. We discussed will be tapering the Librium as tolerated and she requested Benadryl for sleep. At this time patient denies any suicidal or homicidal ideations intent or plan. Denies any auditory or visual hallucinations. Patient denies any side effects from the medications and has been compliant with meds. Mental status exam: General Appearance: Patient appears to be stated age is alert, directable, and superficially cooperative. Behavior: No agitated behavior. Patient is fixated on discharge. Speech: Patient's speech is fluent and non-pressured. Mood/Affect: Mood is anxious, affect is congruent and constricted. Suicidality/Homicidality: Patient denies having any suicidal or homicidal ideation intent or plan. Perceptions: Patient denies any auditory or visual hallucinations. Though content/process: There is no evidence of any delusional thought content and thought process is linear and goal-directed. Memory and concentration: AOX3, grossly intact for the purposes of this session Judgment and insight: improving mildly Assessment/Plan: Continue with current diagnosis. Patient continues to meet criteria for in patient psychiatric admission for symptom stabilization and safety. Patient will be maintained on current psychotropic medication regimen. Plan to taper down Librium depending on response. Start Benadryl 50 mg QHS PRN for sleep. Monitor for medication compliance and for any psychotropic medication side effects. Will continue to monitor ongoing response to treatment. Encouraged participation in milieu.
[2023-05-25] MEDS: QUEtiapine 100 MG TAB PO SCH (20:24)
[2023-05-25] MEDS: MELATONIN 5 MG TABLET PO SCH (20:25)
[2023-05-25] MEDS: diphenhydrAMINE 50 MG CAP PO PRN (20:54)
[2023-05-26] MEDS: THIAMINE 100 MG TAB PO SCH (08:47)
[2023-05-26] MEDS: IBUPROFEN 600 MG TAB PO PRN ×2 (08:48→14:00)
[2023-05-26] MEDS: MAG HYDROX/AL HYDROX/SIMETH 30 ML CUP PO PRN (08:48)
[2023-05-26] MEDS: NICOTINE GUM (POLACRILEX) 2 MG GUM BUCCAL PRN ×2 (08:48→14:00)
[2023-05-26] MEDS: chlordiazePOXIDE 25 MG CAP PO SCH (08:48)
[2023-05-26] MEDS: NICOTINE 14MG/24HR PATCH TRANSDERM SCH (08:49)
--- NOTE | 2023-05-26 19:25 | P.PN ---
Progress Note - Text Progress Note Date: 05/26/23 Interval history: Patient was seen socializing with her roommate and was directable and agreeable to speak with junior copywriter. Her speech is rapid, but non-pressured. She appears anxious and focused on discharge on Saturday again today, can be somewhat demanding. She claims good mood, sleep and appetite. Vitals reviewed and stable. She completed the Librium taper with last dose this morning. No signs of alcohol withdrawal. At this time patient denies any suicidal or homicidal ideation, intent or plan. Denies any auditory or visual hallucinations. Patient denies any side effects from the medications and has been compliant with meds. Mental status exam: General Appearance: Patient appears to be stated age is alert, directable, and superficially cooperative. Behavior: No agitated behavior. Patient is fixated on discharge. Speech: Patient's speech is fluent and non-pressured. Mood/Affect: Mood is anxious about discharge but otherwise stable, affect is congruent and constricted. Suicidality/Homicidality: Patient denies having any suicidal or homicidal ideation intent or plan. Perceptions: Patient denies any auditory or visual hallucinations. Though content/process: There is no evidence of any delusional thought content and thought process is linear and goal-directed. Memory and concentration: AOX3, grossly intact for the purposes of this session Judgment and insight: improving mildly Assessment/Plan: Continue with current diagnosis. Patient continues to meet criteria for inpatient psychiatric admission for symptom stabilization and safety. Patient will be maintained on current psychotropic medication regimen. Librium taper completed this morning. Continue Benadryl 50 mg QHS PRN for sleep. Monitor for medication compliance and for any psychotropic medication side effects. Will continue to monitor ongoing response to treatment. Encouraged participation in milieu.
[2023-05-26] MEDS: QUEtiapine 100 MG TAB PO SCH (21:33)
[2023-05-26] MEDS: MELATONIN 5 MG TABLET PO SCH (21:34)
[2023-05-26] MEDS: diphenhydrAMINE 50 MG CAP PO PRN (21:39)
--- NOTE | 2023-05-27 05:55 | P.PN ---
Progress Note - Text Progress Note Date: 05/27/23 Attempted to see the patient in the MHU. The patient refused to be seen or be evaluated.
[2023-05-27] MEDS: IBUPROFEN 600 MG TAB PO PRN (06:15)
[2023-05-27] MEDS: NICOTINE GUM (POLACRILEX) 2 MG GUM BUCCAL PRN ×2 (06:17→15:19)
[2023-05-27] MEDS: NICOTINE 14MG/24HR PATCH TRANSDERM SCH (09:03)
[2023-05-27] MEDS: THIAMINE 100 MG TAB PO SCH (09:04)
--- NOTE | 2023-05-27 12:02 | P.PN ---
Progress Note - Text Progress Note Date: 05/27/23 Interval History: Patient was seen wandering the hallways and was directable and agreeable to speak with field underwriter in the office. The patient is currently fixated on discharge. She is vehemently denying any suicidal or homicidal ideation, intention, and/or plan. She is not reporting any auditory or visual hallucinations. She does however state to this provider that "I think I have been downplaying, how much I have been hallucinating. In having seizures." She continues to express a strong desire to go to particular rehabs the provider the opportunity for an EEG or MRI. The patient was educated that there will never be an ideal situation in order to address her ongoing substance abuse. She will feel at baseline and elevated sense of anxiety because she will be discontinuing alcohol and psychostimulants. The patient then inquires about this provider the importance of being on medication in order to address her focus. She was provided education how focuses more of a symptom rather than the diagnosis. She was informed that psychostimulants likely contributed to her overall psychotic symptoms. She expresses that she wishes to be discharged and would stay at a hotel before going to rehab. Mental Status Exam: General Appearance: Patient appears to be stated age is alert, directable, and cooperative. Behavior: Patient is calmly seated without any agitated behavior. Speech: Patient's speech is fluent and nonpressured. Hyperverbal but interruptible. Mood/Affect: Mood is "I want to be able to get a vape and be outside." Affect is anxious. Suicidality/Homicidality: Patient denies any suicidal or homicidal ideation, intention, and/or plan. Perceptions: Patient denies any visual hallucinations and denies any auditory hallucinations Though content/process: There is no evidence of any delusional thought content and thought process is linear and goal-directed. Memory and concentration: AOX3, grossly intact for the purposes of this session Judgment and insight: Improving mildly Vital Signs Temp 97.0 F L 05/27/23 06:19 Pulse 109 H 05/27/23 06:19 Resp 14 05/27/23 06:19 BP 119/69 05/27/23 06:19 Pulse Ox 98 05/25/23 17:07 FiO2 Assessment Alcohol use disorder Substance-induced psychosis - alcohol hallucinosis versus stimulant abuse Rule out bipolar disorder with psychotic features Seizure disorder Plan: -Patient continues to meet criteria for inpatient psychiatric admission for symptom stabilization and safety. Patient has signed adult voluntary form and medication consent and was placed in patient's chart. -Medications: Continue Seroquel 150 mg by mouth at bedtime for insomnia/psychosis Start Topamax 25 mg by mouth twice a day for seizure disorder and for off label anxiety Continue melatonin 5 mg by mouth at bedtime for insomnia Continue Benadryl 50 mg by mouth at bedtime when necessary for insomnia -When necessary Zyprexa and Vistaril for agitation/aggression. -NRT -Nicorette gum -SW on board for discharge planning. Encouraged the patient to participate in milieu.
[2023-05-27] MEDS: QUEtiapine 100 MG TAB PO SCH (20:54)
[2023-05-27] MEDS: TOPIRAMATE 25 MG TAB PO SCH (20:54)
[2023-05-27] MEDS: MELATONIN 5 MG TABLET PO SCH (20:54)
[2023-05-27] MEDS: diphenhydrAMINE 50 MG CAP PO PRN (20:55)
[2023-05-28 06:26] VITALS: BP 106/68; PULSE 70; RESP 19; TEMP 97.9
[2023-05-28] MEDS: IBUPROFEN 600 MG TAB PO PRN (09:34)
[2023-05-28] MEDS: TOPIRAMATE 25 MG TAB PO SCH (09:34)
[2023-05-28] MEDS: THIAMINE 100 MG TAB PO SCH (09:34)
[2023-05-28] MEDS: NICOTINE GUM (POLACRILEX) 2 MG GUM BUCCAL PRN (09:36)
[2023-05-28] MEDS: NICOTINE 14MG/24HR PATCH TRANSDERM SCH (11:06)
--- NOTE | 2023-05-28 11:43 | P.DS ---
Providers Date of admission: 05/22/23 18:11 Expected date of discharge: 05/28/23 Attending physician: Osito Frazier MD Consults: 05/22/23 16:52 Consult Physician Routine Consulting Provider: Colin Spears Consult Reason/Comments: H and P. Do you want consulting provider notified?: Yes Primary care physician: Stated None - Discharge Diagnosis(es) (1) Substance-induced psychotic disorder with hallucinations Current Visit: Yes Status: Acute Priority: High (2) Substance induced mood disorder Current Visit: Yes Status: Acute Priority: High (3) Alcohol use disorder Current Visit: Yes Status: Chronic Priority: High (4) Nondependent psychostimulant abuse Current Visit: Yes Status: Chronic Priority: High Hospital Course: Admission HPI: This patient is a single, unemployed, 38-year-old female with significant history of alcohol abuse who presents to our hospital on 05/21/2023, for acute alcohol intoxication. The patient was managed on the medical floor for acute withdrawal and was subsequently admitted onto our psychiatric unit for evaluation of psychosis and mood. Patient presented to the hospital on 05/21/2023, brought into the emergency d epartment by EMS for acute alcohol intoxication. Furthermore, the patient was noted to be very agitated in the emergency department. She was petitioned by her aunt for mental health treatment. The patient has been struggling with mental health issues for the past year. She has been experiencing elevated anxiety and depression after the relationship with her fianc of 10 years ended. She reports that even during their relationship together, he suffered from a traumatic brain injury and that the relationship has not recovered. She reports that she has been coping with excessive alcohol use. She does endorse significant symptoms of depression and anxiety including difficulty with sleep, low energy, low mood, and would often self medicate with alcohol to cope. In order to address her insomnia, the patient would also ingest up to 7 Tylenol PMs at once. The patient however vehemently denies any past or present suicidal or homicidal ideation, intention, and/or plan. Aside from the patient's mood, there is concern for psychosis. The patient reports that she has had intermittent episodes of psychosis over the past year. She describes very vivid auditory hallucinations that started a year ago and very vivid visual hallucinations that has happened sporadically since then. The patient maintains that this would occur even when she is "not depressed and not drinking alcohol for weeks." She reports that she is often hearing the voice of her father telling her how much she is a failure. 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 She states that these hallucinations occur primarily when she is very stressed out. She reports that when she was staying with a friend in [place], she experienced torso hallucinations. She reported that she saw her grandmother and aunts present when they were not there. She reports that they were also present in the car when she was driving. She did text her and as this was happening. She was also evaluated in a hospital in [place] and the provided her with IM medication and after sleeping, she woke up without any hallucinations and was discharged her from the emergency department. Currently, the patient is facing homelessness. However, she states that she was able to speak with her parents and would like to return to their home prior to g oing to rehab. The patient expresses strong desire to go to [facility] for inpatient substance abuse rehabilitation. She was educated on how there will never be an ideal situation to quit alcohol. Patient acknowledges understanding. She is agreeable to psychiatric admission and to be initiated on these medications are to address her psychosis and alcohol use. Patient states that she was previously diagnosed with ADHD, depression, anxiety. The patient has been previously prescribed gabapentin, Vyvanse, and Adderall. She does admit to abusing her Vyvanse on occasion. Patient denies any previous psychiatric hospitalizations. Patient denies any psychiatric outpatient follow- up. Patient denies any history of suicide attempts in the past. Hospital course: Upon admission to the unit patient was initially presenting as hyperverbal, anxious, and endorsing significant history of psychosis in the context of heavy substance abuse. Patient was however directable and agreeable to commence tr eatment. Patient got along well with other patients on the unit and followed unit protocol. Patient was compliant with the medications and denied any side effects throughout hospital course. Patient was started on regimen of Seroquel for psychosis, naltrexone for alcohol cessation, and Librium for alcohol withdrawal. The patient was tapered off Librium. Over the course of the hospitalization, the patient displayed significant improvement in regards to her target symptoms of psychosis and anxiety. Furthermore, her insomnia improved. She was started on Topamax in order to address a history of seizure disorder. Furthermore, the patient was provided with motivational interviewing regarding her alcohol abuse as well as her abuse of stimulants. She is provided psychoeducation on how these substances can precipitate psychotic and mood symptoms. Patient spoke of her stressors and engaged in therapy both group and individual. Patient was also seen by medical team for history and physical exam. Initially, the plan was for the patient to go directly to inpatient substance abuse rehabilitation however the patient preferred to do her own research as to which inpatient substance abuse rehabilitation would be "the right fit" for her. She was informed that there will never be an ideal situation in order to quit substances. The patient then decided that it was in her best interest to go to a hotel upon discharge accompanied by her aunt so that they may decide where to go for inpatient substance abuse rehabilitation then. On the day of discharge, the patient is not reporting any suicidal or homicidal ideation, intention, and/or plan. She is not reporting any auditory or visual hallucinations. She denies any paranoia or other delusions. She reports no access to firearms or other weapons. She has been injured with her medication is not reporting any significant side effects. She does report improved sleep. She expresses a strong desire to live for herself and for her family. The patient does have a significant history of substance abuse including alcohol and stimulants. She was counseled at great length on abstaining from all substances including tobacco, alcohol, marijuana, psychostimulants, and all other drugs of abuse. The patient plans to go to inpatient substance abuse rehabilitation in the near future. She was counseled at length on the reports of medication adherence and appropriate outpatient follow-up. As the patient no longer met criteria for acute inpatient psychiatric hospitalization, she was subsequently discharged. Mental status exam: General Appearance: Patient appears to be stated age is alert, pleasant, and cooperative. Patient is in no acute distress and has fair hygiene and grooming Behavior: Patient is calmly seated without any agitated behavior. Speech: Patient's speech is fluent and nonpressured. Slightly rapid and hyperverbal but interruptible. Mood/Affect: Patient reports their mood is "much better", affect is congruent and euthymic to bright. Suicidality/Homicidality: Patient denies any suicidal or homicidal ideation, intention, and/or plan. Perceptions: Patient denies any auditory or visual hallucinations. Though content/process: There is no evidence of any delusional thought content and thought process is linear and goal-directed. The patient is future oriented. Memory and concentration: AOX3, grossly intact for the purposes of this session. Can spell "WORLD" backwards correctly. Judgment and insight: Improved with guarded prognosis Impression: Substance-induced psychotic disorder with hallucinations Substance-induced mood disorder Alcohol use disorder Psychostimulant abuse Plan: -Continue with discharge today as patient has improved and stabilized psychiatrically and is not currently an imminent threat to herself and/or others. Patient will remain at chronically elevated risk for harm to self and/or others due to her substance abuse history. -Continue medications: Melatonin 5 mg daily at bedtime for insomnia Benadryl 50 mg by mouth at bedtime when necessary for insomnia Naltrexone 50 mg by mouth daily for alcohol cessation Seroquel 150 mg by mouth at bedtime for psychosis Topamax 25 mg by mouth twice a day for seizure disorder and off label anxiety Thiamine supplementation -Patient was counseled on the need for medication compliance and appropriate follow-up at mental health and also primary care for medical issues. Patient verbalized understanding and agreed. -Social work to arrange for and conduct family meeting to ensure safety upon discharge and answer any questions/concerns. Social work also to arrange for patients follow up appointments for psychiatric care along with follow up with primary care provider. -Patient counseled on abstaining from recreational drugs and marijuana and alcohol. Was informed/educated on the adverse effects on their physical and mental health. Patient verbally agreed and understood. Patient plans to go to inpatient substance rehabilitation within this week. She is still deciding to go. -Patient was instructed to return to the hospital or seek immediate medical care if their psychiatric or medical symptoms do worsen or reoccur. -Psychoeducation and supportive therapy provided to patient. Risks and benefits of pharmacological treatment versus the risks and benefits of nontreatment weighed and discussed. Informed consent discussion held. Common side effects of psychotropics discussed such as, but not limited to headache, GI disturbance, sexual dysfunction, movement disorders, sedation, and orthostatic hypotension. Life threatening and blackbox warnings of prescribed medications also discussed. Potential risks of operating a vehicle or heavy machinery discussed with patient at length. Advised on importance of compliance and a reliable and responsible manner. Patient advised to review FDA consumer labeling of all medications prior to taking. Patient verbalized understanding of potential risks, and agrees with current treatment plan. Patient advised to medically contact physician/emergency personnel if any acute changes in condition occur. Vital Signs Temp 97.9 F 05/28/23 06:00 Pulse 70 05/28/23 06:00 Resp 19 05/28/23 06:00 BP 106/68 05/28/23 06:00 Pulse Ox 98 05/28/23 06:00 FiO2 Allergies Allergy/AdvReac Type Severity Reaction Status Date / Time No Known Allergies Allergy Verified 05/21/23 14:24 Patient Condition at Discharge: Stable Plan - Discharge Summary Discharge Rx Participant: Yes New Discharge Prescriptions: New Melatonin 5 mg PO HS 30 Days #30 tab Thiamine [Vitamin B-1] 100 mg PO DAILY 30 Days #30 tab Naltrexone HCl 50 mg PO DAILY 30 Days #30 tab diphenhydrAMINE [Benadryl] 50 mg PO HS PRN 30 Days #30 cap PRN Reason: Insomnia QUEtiapine [SEROquel] 150 mg PO HS 30 Days #45 tab Topiramate [Topamax] 25 mg PO BID 30 Days #60 tab Discontinued Melatonin 5 mg PO HS tab QUEtiapine [SEROquel] 100 mg PO HS tab Thiamine [Vitamin B-1] 100 mg PO DAILY tab Discharge Medication List Melatonin 5 mg PO HS 30 Days #30 tab 05/28/23 [Rx] Naltrexone HCl 50 mg PO DAILY 30 Days #30 tab 05/28/23 [Rx] QUEtiapine [SEROquel] 150 mg PO HS 30 Days #45 tab 05/28/23 [Rx] Thiamine [Vitamin B-1] 100 mg PO DAILY 30 Days #30 tab 05/28/23 [Rx] Topiramate [Topamax] 25 mg PO BID 30 Days #60 tab 05/28/23 [Rx] diphenhydrAMINE [Benadryl] 50 mg PO HS PRN 30 Days #30 cap 05/28/23 [Rx] Follow up Appointment(s)/Referral(s): [facility] [Other] - 05/30/23 9:30 am (walk-in clinic) [facility] [NON-STAFF] - 1 Week Patient Instructions/Handouts: Depression (DC), Alcohol Intoxication (DC) Activity/Diet/Wound Care/Special Instructions: Avoid the use of street drugs and alcohol. Take all medications as prescribed. When you are in need of refills on your medications, please contact your medical provider and/or outpatient psychiatrist/provider to have this done. Please go to your scheduled outpatient appointment for aftercare treatment. If symptoms return or become worse, call the crisis line at and/or go to the nearest emergency room for evaluation. National Suicide Hotline 988. Discharge/Stand Alone Forms: AA Meetings [place] Discharge Disposition: HOME SELF-CARE
--- NOTE | 2023-05-31 13:21 | P.PN ---
Progress Note - Text Progress Note Date: 05/24/23 Interval History: Patient was seen wandering the hallways and was directable and agreeable to speak with credit underwriter in the office. The patient expresses that she does not really require inpatient psychiatric admission. She reports that she would like this provider to speak with her family over the phone in order to convince them to take her back in order to go to rehab after. She reports disagreements with her family. She is however denying any suicidal or homicidal ideation, intention, and/or plan. She is not reporting any auditory or visual hallucinations. She has been adherent with her medications and is not reporting any significant side effects. Mental Status Exam: General Appearance: Patient appears to be stated age is alert, directable, and cooperative. Behavior: Patient is calmly seated without any agitated behavior. Speech: Patient's speech is fluent and nonpressured. Hyperverbal but interruptible. Mood/Affect: Mood is "I feel okay, I feel good, I'm good." Affect is anxious. Suicidality/Homicidality: Patient denies any suicidal or homicidal ideation, intention, and/or plan. Perceptions: Patient denies any visual hallucinations and denies any auditory hallucinations Though content/process: There is no evidence of any delusional thought content and thought process is linear and goal-directed. Memory and concentration: AOX3, grossly intact for the purposes of this session Judgment and insight: Improving mildly Assessment Alcohol use disorder Substance-induced psychosis - alcohol hallucinosis versus stimulant abuse Rule out bipolar disorder with psychotic features Seizure disorder Plan: -Patient continues to meet criteria for inpatient psychiatric admission for symptom stabilization and safety. Patient has signed adult voluntary form and medication consent and was placed in patient's chart. -Medications: Continue Seroquel 150 mg by mouth at bedtime for insomnia, psychosis, and mood stabilization Continue naltrexone 50 mg by mouth daily for alcohol cessation Continue melatonin 5 mg daily at bedtime for insomnia -Decrease Librium 25 mg by mouth to twice a day -When necessary Zyprexa and Vistaril for agitation/aggression. -NRT -Nicorette gum -SW on board for discharge planning. Encouraged the patient to participate in milieu.
== END 2023-05-28 13:17 | disposition home or self-care (01) | DRG 775 ==
LOC: 3MHU 18:11
PROVIDERS: ADMIT Psychiatry & Neurology Psychiatry; ATTEND Psychiatry & Neurology Psychiatry
DX: F10.139 Alcohol abuse with withdrawal, unspecified (principal); F19.951 Other psychoactive substance use, unspecified with psychoactive substance-induced psychotic disorder with hallucinations; F17.200 Nicotine dependence, unspecified, uncomplicated; F32.A Depression, unspecified; F41.9 Anxiety disorder, unspecified; G40.909 Epilepsy, unspecified, not intractable, without status epilepticus; F10.129 Alcohol abuse with intoxication, unspecified; F60.3 Borderline personality disorder; G47.00 Insomnia, unspecified; Z56.0 Unemployment, unspecified; Z59.00 Homelessness unspecified; Z79.899 Other long term (current) drug therapy; Z71.6 Tobacco abuse counseling; Z71.41 Alcohol abuse counseling and surveillance of alcoholic; Z71.51 Drug abuse counseling and surveillance of drug abuser